=== PATIENT | male | born 1995 ===

== ENCOUNTER 2019-02-09 18:27 | Emergency (ER) | payer OTHER ==
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
[2019-02-10 01:53] VITALS: BP 111/57
== END 2019-02-10 01:50 | disposition home or self-care (01) ==
LOC: ED 18:27
DX: M54.2 Cervicalgia (principal); M54.5 Low back pain; M25.512 Pain in left shoulder; M79.10 Myalgia, unspecified site; V89.2XXA Person injured in unspecified motor-vehicle accident, traffic, initial encounter; Y93.89 Activity, other specified; Y92.488 Other paved roadways as the place of occurrence of the external cause; Y99.8 Other external cause status
CPT/HCPCS: 72040; 72100; 99283